=== PATIENT | female | born 1980 | race Caucasian/White ===

== ENCOUNTER → 2016-11-05 | Outpatient (CLI) | payer OTHER ==
[~2016-11-05] MED LIST: AMOXICILLIN500 MG PO; AUGMENTIN 875 M1 TAB PO; DIFLUCAN150 MG PO; MOTRIN800 MG PO
== END | disposition home or self-care (01) ==
LOC: MRI 09:00
DX: R51 Headache (principal); R42 Dizziness and giddiness

== ENCOUNTER → 2016-11-17 | Outpatient (CLI) | payer OTHER | END | disposition home or self-care (01) | LOC: US 09:46 | DX: K76.9 Liver disease, unspecified (principal) ==

== ENCOUNTER 2018-10-20 18:58 | Emergency (ER) | payer OTHER ==
[~2018-10-20] VITALS: Ht 154.9 cm; Wt 113.4 kg
[2018-10-20] MEDS ORDERED: TESSALON PERLE100 MG PO (20:50)
[2018-10-20] MEDS ORDERED: AVPAK AZITHROM250 M1 PO (20:50)
[2018-10-20] MEDS ORDERED: PREDNISONE50 MG PO (20:50)
== END 2018-10-20 20:44 | disposition home or self-care (01) ==
LOC: ED 18:58
DX: R05 Cough (principal); J02.9 Acute pharyngitis, unspecified; R06.02 Shortness of breath; R50.9 Fever, unspecified; M79.10 Myalgia, unspecified site; R07.89 Other chest pain

== ENCOUNTER 2021-06-22 18:11 | Observation (INO) | payer OTHER ==
[~2021-06-22] VITALS: Ht 154.9 cm; Wt 113.2 kg
[2021-06-22] VITALS (8 sets, daily range): BP systolic 112–170; BP diastolic 49–90
[~2021-06-22 18:11] MED LIST changes: +AVPAK AZITHROM250 M1 PO; +PREDNISONE50 MG PO; +TESSALON PERLE100 MG PO
[2021-06-22 18:48] LABS: BASO % 0.2 % (0.0-1.0); EOS # 0.2 10*3/uL (0.0-0.4); HEMATOCRIT 38.8 % (37.0-47.0); LYMPH # 3.3 10*3/uL (1.3-4.4); MEAN CELL VOLUME 83.8 fl (81.0-99.0); MEAN CORPUSCULAR HGB 26.1 pg (27.0-31.0); MEAN CORPUSCULAR HGB CONC 31.2 g/dl (33.0-37.0); MEAN PLATELET VOLUME 11.1 fl (9.6-12.3); MONO # 0.4 10*3/uL (0.1-1.0); MONO % 4.4 % (3.0-9.0); NEUT # 4.4 10*3/uL (2.3-7.9); PLATELET COUNT AUTOMATED 279 10*3/uL (130-400); RED BLOOD COUNT 4.63 10*6/uL (4.10-5.10); RED CELL DISTRI WIDTH 14.1 % (0-14.5); WHITE BLOOD COUNT 8.3 10*3/uL (4.8-10.8)
[2021-06-22 18:59] LABS: ACT PARTIAL THROMBO TIME 26.1 SECONDS (20.0-32.1)
[2021-06-22 19:02] LABS: BILIRUBIN Negative (Negative); BLOOD Negative (Negative); CLARITY Clear (Clear); COLOR Yellow (Yellow); GLUCOSE Negative (Negative); KETONE Negative (Negative); LEUKO ESTERASE Negative (Negative); NITRITE Negative (Negative); SPECIFIC GRAVITY 1.015 (1.001-1.030); UROBILINOGEN 0.2 E.U./dl (0.0-1.0)
[2021-06-22 19:03] LABS: ALBUMIN 3.5 gm/dl (3.1-4.5); ALKALINE PHOSPHATASE 72 U/L (45-117); BUN 13 mg/dl (7-24); CHLORIDE 106 mmol/L (98-107); CREATININE 0.88 mg/dL (0.55-1.02); POTASSIUM 3.6 mmol/L (3.5-5.1); SGOT/AST 41 IU/L (3-35); SGPT/ALT 41 U/L (12-78); SODIUM 140 mmol/L (136-145); TOTAL PROTEIN 7.8 gm/dL (6.4-8.2)
[2021-06-22 19:14] LABS: BACTERIA 2+
[2021-06-22 19:15] LABS: WBC 0-2 wbc/hpf (0-5)
[2021-06-22] MEDS ORDERED: SYNTHROID25 MCG PO (22:47)
[2021-06-23 07:01] LABS: BASO % 0.1 % (0.0-1.0); EOS # 0.2 10*3/uL (0.0-0.4); HEMATOCRIT 37.6 % (37.0-47.0); LYMPH # 2.9 10*3/uL (1.3-4.4); LYMPH % 37.8 % (27.0-41.0); MEAN CELL VOLUME 82.8 fl (81.0-99.0); MEAN CORPUSCULAR HGB 25.8 pg (27.0-31.0); MEAN CORPUSCULAR HGB CONC 31.1 g/dl (33.0-37.0); MEAN PLATELET VOLUME 11.2 fl (9.6-12.3); MONO # 0.4 10*3/uL (0.1-1.0); MONO % 4.9 % (3.0-9.0); NEUT # 4.2 10*3/uL (2.3-7.9); NEUT % 55.1 % (47.0-73.0); PLATELET COUNT AUTOMATED 297 10*3/uL (130-400); RED BLOOD COUNT 4.54 10*6/uL (4.10-5.10); RED CELL DISTRI WIDTH 14.2 % (0-14.5); WHITE BLOOD COUNT 7.7 10*3/uL (4.8-10.8)
[2021-06-23 07:28] LABS: ALBUMIN 3.3 gm/dl (3.1-4.5); BUN 9 mg/dl (7-24); CHLORIDE 111 mmol/L (98-107); CHOLESTEROL 129 mg/dL (<200); FREE T4 0.95 ng/dl (0.76-1.46); LDL CHOLESTEROL 54 mg/dL (9-159); POTASSIUM 3.6 mmol/L (3.5-5.1); SGOT/AST 28 IU/L (3-35); SGPT/ALT 38 U/L (12-78); SODIUM 144 mmol/L (136-145); TOTAL PROTEIN 7.3 gm/dL (6.4-8.2); TRIGLYCERIDES 153 mg/dl (<150)
[2021-06-23 07:33] LABS: ALKALINE PHOSPHATASE 63 U/L (45-117); CREATININE 0.49 mg/dL (0.55-1.02)
[2021-06-23 08:00] VITALS: BP 147/69
[2021-06-23 08:26] LABS: VITAMIN D, 25-HYDROXY 25.2 ng/mL (30-100)
[2021-06-23 12:00] VITALS: BP 138/84
[2021-06-23] MEDS ORDERED: METOPROLOL SUCC50 M1 PO (14:16)
[2021-06-23] MEDS ORDERED: XARE20MG PO (14:16)
== END 2021-06-23 16:34 | disposition home or self-care (01) ==
LOC: ED 18:11 → 4E 20:26 → EDHOLD 20:26 → 4E 22:07
PROVIDERS: Emergency Medicine; Internal Medicine; ADMIT Internal Medicine; ATTEND Internal Medicine
DX: I48.20 Chronic atrial fibrillation, unspecified (principal); Z79.01 Long term (current) use of anticoagulants; E03.9 Hypothyroidism, unspecified; R00.2 Palpitations; I51.7 Cardiomegaly; R65.10 Systemic inflammatory response syndrome (SIRS) of non-infectious origin without acute organ dysfunction; R06.82 Tachypnea, not elsewhere classified; R73.9 Hyperglycemia, unspecified; R74.01 Elevation of levels of liver transaminase levels; E66.01 Morbid (severe) obesity due to excess calories; Z68.41 Body mass index [BMI] 40.0-44.9, adult; Z79.899 Other long term (current) drug therapy